=== PATIENT | female | born 1985 | race American Indian/Alaskan Native ===

== ENCOUNTER 2020-10-06 21:19 | Emergency (ER) | payer OTHER ==
[2020-10-06 22:59] LABS: Mean Corpuscular HGB Conc 29 % (30-34); Platelet Count 407 K/mm3 (140-440); Red Cell Distribution Width 19.6 % (13.2-15.2)
[2020-10-06 23:00] LABS: Hematocrit 27.8 % (30.3-42.9); Hemoglobin 8.2 gm/dl (10.1-14.3); Mean Corpuscular Volume 70 fl (79-97)
[2020-10-06 23:15] LABS: Alanine Aminotransferase 13 units/L (7-56); Albumin 3.4 g/dL (3.9-5); BUN/Creatinine Ratio 15; Blood Urea Nitrogen 12 mg/dL (7-17); Calcium 9.1 mg/dL (8.4-10.2); Hemolysis Index 12
[2020-10-06 23:21] LABS: Total Cells Counted 100
[2020-10-06 23:22] LABS: Anisocytosis Few; Hypochromasia Few
[2020-10-07 00:17] LABS: Bilirubin,Urine NEG (Negative); Blood,Urine LG (Negative); Color,Urine Yellow (Yellow); Mucus,Urine 2+ /HPF; Urobilinogen,Urine < 2.0 mg/dL (<2.0)
[2020-10-07 00:18] LABS: RBC,Urine > 182.0 /HPF (0.0-6.0)
--- NOTE | 2020-10-07 01:19 | Emergency Department Report ---
ED General Adult HPI - General Chief complaint: Abdominal Pain Stated complaint: PELVIC PAIN/VAGINAL BLEEDING Time Seen by Provider: 10/07/20 01:08 Source: patient Mode of arrival: Ambulatory Limitations: No Limitations - History of Present Illness Initial comments: Patient is 34 years old female morbidly obese. Patient presented to the ER complaining of lower abdominal pain started today when she started her cycle again. Patient stated that she has her cycle been going on for more than 1 month. Patient stated she had issue like this before. Patient denied any nausea or vomiting. Patient also complaining of increased urinary frequency and dysuria. No fever or chills. - Related Data Allergies Allergy/AdvReac Type Severity Reaction Status Date / Time No Known Allergies Allergy Verified 10/06/20 22:13 ED Review of Systems ROS: Stated complaint: PELVIC PAIN/VAGINAL BLEEDING Other details as noted in HPI Comment: All other systems reviewed and negative Constitutional: denies: chills, fever Respiratory: denies: cough, shortness of breath, SOB with exertion (It tachycardia) Cardiovascular: denies: chest pain (. In the) Gastrointestinal: abdominal pain. denies: nausea, vomiting, diarrhea, constipation, hematemesis, melena, hematochezia Musculoskeletal: denies: back pain ED Past Medical Hx - Past Medical History Previous Medical History?: No - Surgical History Past Surgical History?: No - Social History Smoking Status: Never Smoker Substance Use Type: Alcohol ED Physical Exam - General Limitations: No Limitations General appearance: alert, in no apparent distress - Head Head exam: Present: atraumatic, normocephalic, normal inspection - Eye Eye exam: Present: normal appearance - ENT ENT exam: Present: normal exam, normal orophraynx, mucous membranes moist - Neck Neck exam: Present: normal inspection, full ROM. Absent: tenderness, meningismus - Respiratory Respiratory exam: Present: normal lung sounds bilaterally - Cardiovascular Cardiovascular Exam: Present: regular rate, normal rhythm, normal heart sounds - GI/Abdominal GI/Abdominal exam: Present: soft, normal bowel sounds. Absent: distended, tenderness, guarding, rebound, rigid, organomegaly, mass, bruit, pulsatile mass, hernia - Extremities Exam Extremities exam: Present: normal inspection, full ROM, normal capillary refill. Absent: tenderness - Back Exam Back exam: Present: normal inspection, full ROM. Absent: CVA tenderness (R), CVA tenderness (L) - Neurological Exam Neurological exam: Present: alert, oriented X3, CN II-XII intact - Psychiatric Psychiatric exam: Present: normal mood - Skin Skin exam: Present: warm, intact, normal color ED Course Vital Signs 10/06/20 22:11 Temperature 97.6 F Pulse Rate 75 Respiratory 17 Rate Blood Pressure 144/90 O2 Sat by Pulse 99 Oximetry ED Medical Decision Making - Lab Data Result diagrams: 10/06/20 22:38 10/06/20 22:38 Critical care attestation.: If time is entered above; I have spent that time in minutes in the direct care of this critically ill patient, excluding procedure time. ED Disposition Clinical Impression: Abdominal pain, Menorrhagia, UTI (urinary tract infection) Disposition: - TO HOME OR SELFCARE Is pt being admited?: No Condition: Stable Instructions: Abdominal Pain (ED), Abdominal Pain, Adult, [id number], Urinary Tract Infection, Adult, Metrorrhagia Referrals: PRIMARY CARE, [Primary Care Provider] - 3-5 Days
[2020-10-07] MEDS ORDERED: KETOROLAC 60 MG/2 ML INJ IM ONE (01:20)
[2020-10-07 01:34] VITALS: BP 151/79
== END 2020-10-07 01:40 | disposition home or self-care (01) ==
LOC: ED 21:19
DX: N39.0 Urinary tract infection, site not specified (principal); N92.0 Excessive and frequent menstruation with regular cycle; R10.30 Lower abdominal pain, unspecified
CPT/HCPCS: 36415; 80053; 81001; 84703; 85007; 85025; 87086; 96372; 99283; J1885